=== PATIENT | male | born 2000 | race Caucasian/White ===

== ENCOUNTER 2023-09-08 08:29 | Emergency (ER) | payer SELFPAY ==
[~2023-09-08] VITALS: Ht 180.3 cm; Wt 110.0 kg
[2023-09-08 08:35] VITALS: TEMP 98.8
[2023-09-08] MEDS ORDERED: Acetaminophen 500 MG TAB PO ONE (09:00)
[2023-09-08 10:04] VITALS: BP 123/77; PULSE 68
== END 2023-09-08 10:05 | disposition home or self-care (01) ==
LOC: COL.ER 08:29
DX: S50.12XA Contusion of left forearm, initial encounter (principal); R51.9 Headache, unspecified; V89.2XXA Person injured in unspecified motor-vehicle accident, traffic, initial encounter; Y92.410 Unspecified street and highway as the place of occurrence of the external cause